=== PATIENT | male | born 1995 | race Two or more races ===

== ENCOUNTER 2016-09-24 21:26 | Emergency (ER) | payer MEDICAID ==
[~2016-09-24] VITALS: Ht 182.9 cm; Wt 88.5 kg
--- NOTE | 2016-09-24 21:46 | Emergency Room Report ---
History of Present Illness General Chief Complaint: Male Urogenital Problems Source: Patient Present Illness HPI This is a 21-year-old male with recent back surgery for herniated disc. He was just discharged from [facility] at 3 PM today. He has a catheter in. He called 911 because he was concerned that it may be a blockage in the [place]. He said that we is laying down he felt a urine backing up in the [place]. Denies any fever or chills. Denies any nausea vomiting. No other injury. He is getting better from movement standpoint. Allergies: Coded Allergies: No Known Allergies (Unverified , 09/24/16) Patient History Past Medical History: see triage record, old chart reviewed Past Surgical History: other Pertinent Family History: none Social History: Denies: smoking Immunizations: other Reviewed Nursing Documentation: PMH: Agreed, PSxH: Agreed Review of Systems Eye: Denies: blurred vision, eye pain ENT: Denies: ear pain, nose congestion, throat swelling Respiratory: Denies: cough, shortness of breath Cardiovascular: Denies: chest pain, palpitations Gastrointestinal: Denies: abdominal pain, diarrhea, nausea, vomiting Musculoskeletal: Denies: back pain, joint pain Skin: Denies: rash Neurological: Denies: headache, numbness Endocrine: Denies: increased thirst, increased urine Hematologic/Lymphatic: Denies: easy bruising All Other Systems: negative except mentioned in HPI Physical Exam Vital Signs Date Time Temp Pulse Resp B/P Pulse Ox O2 Delivery O2 Flow Rate FiO2 09/24/16 21:24 98.1 64 18 138/78 98 Room Air vitals unremarkable Sp02 EP Interpretation: reviewed, normal General Appearance: well appearing, no apparent distress, alert Head: normocephalic, atraumatic Eyes: bilateral eye EOMI, bilateral eye PERRL ENT: hearing grossly normal, normal pharynx Neck: full range of motion, supple, no meningismus Respiratory: chest non-tender, lungs clear, normal breath sounds Cardiovascular #1: regular rate, rhythm, no murmur Gastrointestinal: normal bowel sounds, non tender, no mass, no organomegaly, no bruit, non-distended Genitourinary: other - Patient has a Holland in place. Urine is clear. There is no obstruction. Musculoskeletal: normal range of motion Psychiatric: mood/affect normal Skin: warm/dry Medical Decision Making Diagnostic Impression: Primary Impression: [place] catheter status ER Course Patient has a [place] catheter in place. Is functioning fine. I flushed it and is no evidence of obstruction. Explained to patient what he see is his urine backing up because of the catheter. This is dueto gravity because he is laying down. There is no structure. Is no infection. We'll discharge home. Last Vital Signs Date Time Temp Pulse Resp B/P Pulse Ox O2 Delivery O2 Flow Rate FiO2 09/24/16 21:24 98.1 64 18 138/78 98 Room Air Status: improved Disposition: HOME, SELF-CARE Condition: Stable Additional Instructions: Followup with your doctor or [facility] as scheduled. Return if symptom worsen. DEE WEBB M.D. Sep 24, 2016 21:46
[2016-09-24 21:50] VITALS: BP 138/78
== END 2016-09-24 21:50 | disposition home or self-care (01) ==
LOC: EDBD 21:26 → EMR 21:40
DX: T83.9XXA Unspecified complication of genitourinary prosthetic device, implant and graft, initial encounter (principal); Y84.6 Urinary catheterization as the cause of abnormal reaction of the patient, or of later complication, without mention of misadventure at the time of the procedure; Y92.9 Unspecified place or not applicable
CPT/HCPCS: 99282; 99283